=== PATIENT | male | born 1945 | race Caucasian/White ===

== ENCOUNTER → 2017-09-02 | Day surgery (SDC) | payer MEDICARE ==
[2017-09-01 17:55] LABS: BASOPHILS # (AUTO) 0.2 (0.0-0.1); BASOPHILS % 1.8 % (0.0-1.0); EOSINOPHILS # (AUTO) 0.3 (0.0-0.4); EOSINOPHILS % 2.8 % (0.0-6.0); HEMATOCRIT 45.4 % (38.2-49.6); HEMOGLOBIN 15.1 g/dL (14.0-18.0); LYMPHOCYTES # (AUTO) 2.3 (1.0-3.2); LYMPHOCYTES % 21.5 % (18.0-39.1); MEAN CORPUSCULAR HGB CONC 33.3 g/dL (31-35); MEAN CORPUSCULAR VOLUME 84.2 fL (81-99); MONOCYTES # (AUTO) 1.1 (0.2-0.8); MONOCYTES % 9.8 % (4.4-11.3); NEUTROPHILS # (AUTO) 6.8 (2.1-6.9); NEUTROPHILS % 63.5 % (38.7-80.0); PLATELET COUNT 255 x10e3/uL (140-360); RED BLOOD COUNT 5.39 x10e6/uL (4.3-5.7); RED CELL DISTRIBUTION WIDTH 13.9 % (11.7-14.4)
--- NOTE | 2017-09-01 18:21 | Diagnostic Imaging Report ---
PROCEDURE: Frontal and lateral views of the chest. COMPARISON: None. INDICATIONS: PRE-OP FINDINGS: Lines/tubes: Left chest wall dual-lead cardiac device in place with distal leads overlying right atrium and right ventricle. Lungs: The lungs are well inflated. Mild central vascular congestion. There is no evidence of pneumonia or pulmonary edema. Pleura: There is no significant pleural effusion or pneumothorax. Heart and mediastinum: The heart and the mediastinum are normal. Bones: No acute bony abnormality. IMPRESSION: 1. No acute cardiopulmonary disease. Dictated by: Nixon Schroeder M.D. on 09/01/2017 at 18:25 Electronically approved by: Nixon Schroeder M.D. on 09/01/2017 at 18:25
[~2017-09-02] MED LIST: ASPIRIN81 MG; ATENOLOL50 MG; ATORVASTATIN CA20 MG PO; BUPIVACAINE HCL 0.5% 10ML MPF VIAL INJ ONE; CEFAZOLIN SOD 1 GM VIAL ONE; CLOPIDOGREL75 MG PO; DEXAMETHASONE SOD PHOS INJ 4 MG/ML VIAL ONE; FENOFIBRATE145 MG; FISH OIL 1,0001 EAC2; FLECAINIDE ACE100 MG PO; ISOSORBIDE MONO20 MG PO; LIDOCAINE HCL 2% LOCAL INJ 5 ML SDV VIAL INJ ONE; LOSARTAN POTASS50 MG; NIFEDIPINE ER30 M1; ONDANSETRON HCL INJ 2 MG/ML VIAL ONE; PROPOFOL IV EMULSION 10 MG/ML 20 ML VIAL ONE; SEVOFLURANE INHAL SOLN 250 ML PEN BTL ONE
--- NOTE | 2017-09-02 11:01 | Operative Report ---
DATE OF PROCEDURE: September 02, 2017 [employer]AMP [employer]EEPER: Blas Griffin PA-C The patient was brought to the operating room for induction of anesthesia. Throughout this case, my PA's assistance was necessary for retraction of soft tissue and positioning of the extremity. This allows for efficient and technically successful execution of the operation and is considered medically necessary. PREOPERATIVE DIAGNOSIS: Left carpal tunnel syndrome. POSTOPERATIVE DIAGNOSIS: Left carpal tunnel syndrome. PROCEDURE: Left endoscopic carpal tunnel release. INDICATIONS: The patient is a 72-year-old gentleman who has severe left upper extremity pain. He has had nerve conduction studies that show severe left carpal tunnel syndrome. He also has some signs of cervical radiculopathy and possibly some shoulder issues. We have discussed the findings and options. He would like to proceed with a carpal tunnel release. The possibility of some persistent pain was explained. He states he understands and agrees to proceed. PROCEDURE: The patient was brought to the operating room. He was placed under general anesthetic. Prophylactic antibiotics were given in the holding area. The upper extremity was prepped and draped in a sterile manner. A well-padded tourniquet was placed on the upper arm and inflated to 250 mmHg. An operative time out was performed. A 1-cm incision was made over the flexion crease of the wrist. The palmaris longus was retracted to the radial side of the wound. The flexor retinaculum was elevated and incised with a pair of sharp tenotomy scissors. An elevator was used to tease the tenosynovium off the undersurface of the transverse carpal ligament. Dilators were placed, and the hook of the hamate was palpated. The [employer] endoscope was then placed into the carpal tunnel. The undersurface of the ligament was cleanly visualized without evidence of soft tissue interposition. The knife was deployed, and the ligament was cut from distal to proximal. Full-thickness cut was noted. The proximal retinaculum was then incised under direct visualization using a pair of blunt Metzenbaum scissors. The wound was irrigated and closed with 2 interrupted 4-0 nylon stitches. A sterile bandage was applied, and the patient was extubated. The patient was transferred to the recovery room in stable condition. Blood loss was less than 5 mL, and at the end of the procedure needle and sponge counts were correct. Job#: [id number]
== END | disposition home or self-care (01) ==
LOC: OR 07:52
PROVIDERS: ATTEND Specialist
DX: G56.02 Carpal tunnel syndrome, left upper limb (principal); M47.22 Other spondylosis with radiculopathy, cervical region; G56.22 Lesion of ulnar nerve, left upper limb; E66.01 Morbid (severe) obesity due to excess calories; G47.33 Obstructive sleep apnea (adult) (pediatric); I25.10 Atherosclerotic heart disease of native coronary artery without angina pectoris; Z01.810 Encounter for preprocedural cardiovascular examination; Z01.812 Encounter for preprocedural laboratory examination; Z01.818 Encounter for other preprocedural examination; Z79.82 Long term (current) use of aspirin; Z79.02 Long term (current) use of antithrombotics/antiplatelets; Z68.39 Body mass index [BMI] 39.0-39.9, adult; Z95.0 Presence of cardiac pacemaker; Z95.5 Presence of coronary angioplasty implant and graft; Z87.891 Personal history of nicotine dependence
CPT/HCPCS: 29848; 36415; 71046; 85025; 93005; J0690; J1100; J2001; J2405